=== PATIENT | female | born 1950 | race Caucasian/White ===

== ENCOUNTER 2017-01-06 09:22 | Observation (INO) | payer OTHER ==
[2017-01-01 13:14] LABS: HEMOGLOBIN 12.1 g/dL (12.0-16.0)
[2017-01-01 13:15] LABS: HEMATOCRIT 36.6 % (36.0-48.0)
[2017-01-01 13:30] LABS: CALCIUM, SERUM 8.3 MG/DL (8.5-10.4); CHLORIDE, SERUM 109 MMOL/L (96-112); CO2 (CARBON DIOXIDE) 22 MMOL/L (24-34); CREATININE 0.89 MG/DL (0.55-1.02); GFR AFRICAN AMERICAN 78 ML/MIN (>=60); GFR NON AFRICAN AMERICAN 67 ML/MIN (>=60); GLUCOSE, SERUM 117 MG/DL (60-99); SODIUM, SERUM 141 MMOL/L (135-148)
[2017-01-01 13:31] LABS: BUN (BLOOD UREA NITROGEN) 12 MG/DL (6-23)
--- NOTE | ~2017-01-06 | OP ---
Record Of Operation [facility] [address] [place]. [address] NAME: FÁTIMA FRAAG : 48 STATUS : ADM Carol PAT#: [id number] AGE: 66 ADM/REG DATE : 01/06/17 MR#: [id number] REPORT SERV DATE: 01/06/17 DICTATED BY: CALVIN LEE DATE: 01/06/17 REPORT STATUS : Draft TRANSCRIBED BY: DAX DATE: 01/06/17 DATE OF PROCEDURE: 01/06/2017 PREPROCEDURE DIAGNOSIS: Multiple ventral hernias from an incisional hernia. POSTPROCEDURE DIAGNOSIS: Multiple ventral hernias from an incisional hernia. PROCEDURE: Open ventral hernia repair with 20 x 25 cm piece of Ventralight mesh. MAINTENANCE OF WAY SUPERVISOR: Maisha. DESCRIPTION OF PROCEDURE: The patient was taken to the operating room, induced under general anesthesia, a Rowan catheter was placed. The patient was prepped and draped in the usual sterile fashion. A 6 cm incision was made above the level of the umbilicus using the patient's prior midline incision. This was carried down to the level of the fascia using cautery. The hernia sac was opened between two hemostats using a scalpel blade and then once the hernia sac was opened, the transverse colon that kept getting incarcerated, and the hernia was freed from the hernia sac. All adhesions were freed circumferentially to allow for the 20/25 piece of mesh to be accommodated. There were actually three hernias. There was a small hernia proximal to the main midline hernia, and then a weakness of the scar at the distal midline. All of which will be covered by the mesh. The proximal hernia was closed with a [id number] Prolene suture before the mesh was placed, then the mesh was placed in a vertical fashion, so that the longest axis was along the midline, and tacked into place in four quadrants using #1 Prolene, and then interrupted in between along the abdominal fascia. Once this was accomplished, then the midline was closed with figure-of- eight Prolene sutures. The wound was irrigated, and the skin closed with 4-0 Monocryl, followed by benzoin, Steri-Strips, and an Airstrip. She tolerated the procedure well. CAROL/DAX Calvin Lee M.D. / [id number] CC: Dora Carson DO Mark S Womack IV, M.D.
--- NOTE | ~2017-01-06 | HP ---
History And Physical [address] [place]. [address] NAME: FÁTIMA FRAGA : 48 STATUS : ADM Carol PAT#: [id number] AGE: 66 ADM/REG DATE : 01/06/17 MR#: [id number] REPORT SERV DATE: 01/06/17 DICTATED BY: CALVIN LEE DATE: 01/06/17 REPORT STATUS : Draft TRANSCRIBED BY: DAX DATE: 01/06/17 DATE OF ADMISSION: 01/06/2017 REASON FOR ADMISSION: Open ventral hernia repair with mesh. PAST MEDICAL HISTORY: Incisional hernia after right hemicolectomy for a malignant neoplasm of the ascending colon was performed by Dr. Ugalde one year ago; diarrhea; acute hypokalemia; and anxiety. SURGICAL HISTORY: Colon resection, lymph node biopsy, left knee replacement, hysterectomy, cholecystectomy, appendectomy, left shoulder surgery, and right ankle surgery. SOCIAL HISTORY: Quit smoking. Social drinker. She is . FAMILY HISTORY: Significant for alcoholism, diabetes. ALLERGIES: MORPHINE. MEDICATIONS: Buspirone, zolpidem, lovastatin, and melatonin. REVIEW OF SYSTEMS: As stated in the HPI, otherwise, negative. PHYSICAL EXAMINATION: VITAL SIGNS: 85, 125/94, weight 167 pounds. GENERAL: Alert, elderly white female, in no acute distress. HEENT: Normocephalic, atraumatic. EOMI. PERRLA. Oropharynx is clear. NECK: Supple. No lymphadenopathy. LUNGS: Clear to auscultation bilaterally. HEART: Regular rate and rhythm. ABDOMEN: Obese with midline incision and the above-mentioned three ventral hernias. NEURO: Moves all extremities well. Cranial nerves 2 through 12 intact. SKIN: No rashes. ASSESSMENT: Open ventral hernia repair with mesh. PLAN: I have discussed risks, benefits, and alternatives. She understands and is willing to proceed. CAROL/DAX Calvin Lee M.D. History And Physical [address] [place]. [id number] NAME: FÁTIMA FRAGAA : 48 STATUS : ADM Carol PAT#: [id number] AGE: 66 ADM/REG DATE : 01/06/17 MR#: [id number] REPORT SERV DATE: 01/06/17 DICTATED BY: CALVIN LEE DATE: 01/06/17 REPORT STATUS : Draft TRANSCRIBED BY: MODL DATE: 01/06/17 / [id number] CC: Dora Carson DO
[~2017-01-06 09:22] MED LIST: AMBIEN CR12.5 MG PO; CELEXA20 PO; ELIQUIS 5 MG TAB5 MG PO; EZFE 200200 MG PO; KDUR20 PO; KLONO1 PO; LEVAQUIN750 MG PO; LORTAB10 PO; MD ANDERSON; MD ANDERSON PO; MELATONIN5 M1 PO; NORCO1 TA1 PO; OTC ACID REDUCER PO; PROTONIX PO; SUCR PO; ZOL100 PO; ZOL50 PO; melatonin
[2017-01-06 14:41] LABS: HEMATOCRIT 35.6 % (36.0-48.0); HEMOGLOBIN 11.8 g/dL (12.0-16.0)
[2017-01-07 06:30] LABS: BASOPHILS 0.1 %; BASOPHILS ABSOLUTE 0.01 10/3/uL (0.0-0.16); EOSINOPHILS 0 %; HEMATOCRIT 34.4 % (36.0-48.0); HEMOGLOBIN 11.3 g/dL (12.0-16.0); IMMATURE GRANULOCYTES 0.3 %; IMMATURE GRANULOCYTES ABSOLUTE 0.03 10/3/uL (0.0-0.11); LYMPHOCYTES 6.8 %; LYMPHOCYTES ABSOLUTE 0.66 10/3/uL (0.67-4.30); MANUAL DIFF NO %; MEAN CORPUS HGB CONC 32.8 g/dL (32.0-36.0); MEAN CORPUSCULAR HEMOGLOB 29.5 pg (26.0-34.0); MEAN CORPUSCULAR VOLUME 89.8 fL (80-100); MEAN PLATELET VOLUME 9.7 fL (9.2-13.0); MONOCYTES 3.9 %; MONOCYTES ABSOLUTE 0.38 10/3/uL (0.21-1.20); NEUTROPHILS 88.9 %; NEUTROPHILS ABSOLUTE 8.63 10/3/uL (2.02-8.40); PLATELET COUNT 189 10/3/uL (150-400); RBC DISTRIBUTION WIDTH 13.7 % (12.0-16.0); RED CELL COUNT 3.83 10/6/uL (4.0-5.6); WHITE BLOOD CELLS 9.7 10/3/uL (4.5-10.5)
[2017-01-07 06:45] LABS: CALCIUM, SERUM 7.5 MG/DL (8.5-10.4); CHLORIDE, SERUM 107 MMOL/L (96-112); CO2 (CARBON DIOXIDE) 19 MMOL/L (24-34); CREATININE 1.38 MG/DL (0.55-1.02); GFR AFRICAN AMERICAN 46 ML/MIN (>=60); GFR NON AFRICAN AMERICAN 39 ML/MIN (>=60); GLUCOSE, SERUM 135 MG/DL (60-99); POTASSIUM, SERUM 4.8 MMOL/L (3.5-5.3); SODIUM, SERUM 137 MMOL/L (135-148)
[2017-01-07 06:46] LABS: BUN (BLOOD UREA NITROGEN) 19 MG/DL (6-23)
[2017-01-07] MEDS ORDERED: NORCO1 TA2 PO (09:46)
== END 2017-01-07 13:33 | disposition home or self-care (01) ==
LOC: SDC 09:22 → 5SO 15:50
PROVIDERS: Surgery
PROC: 0WUF0JZ Supplement Abdominal Wall with Synthetic Substitute, Open Approach (ICD-10-PCS; principal; 2017-01-06 11:45)
DX: K43.6 Other and unspecified ventral hernia with obstruction, without gangrene (principal); K21.9 Gastro-esophageal reflux disease without esophagitis; Z90.49 Acquired absence of other specified parts of digestive tract; Z96.652 Presence of left artificial knee joint; Z90.710 Acquired absence of both cervix and uterus; Z98.890 Other specified postprocedural states; Z87.891 Personal history of nicotine dependence; Z83.3 Family history of diabetes mellitus; Z88.5 Allergy status to narcotic agent; Z79.899 Other long term (current) drug therapy
CPT/HCPCS: 80048; 85014; 85018; 85025; 87641; 93005; 96372; 96374; 96375; 96376; A9270-GY; C1781; C9113; G0378; J0690; J1170; J1885; J2250; J2405; J2710; J2795; J3010